=== PATIENT | male | born 1945 | race Caucasian/White ===

== ENCOUNTER 2018-08-26 05:45 | Day surgery (SDC) | payer MEDICARE ==
[2018-08-26] MEDS ORDERED: Clindamycin 900 MG IVPREMIX(* 900 MG/50 ML SDV IV ONE (06:36)
[2018-08-26] MEDS ORDERED: Buffered Lidocaine 1% SYRIN* 1 ML/SYRINGE INTRADERM ONE (06:36)
[2018-08-26] MEDS ORDERED: Bupivacaine 0.5%* 50 ML VIAL ONE (07:13)
[2018-08-26] MEDS ORDERED: Famotidine IV* 10 MG/ML 2 ML (20 mg) ONE (07:21)
[2018-08-26] MEDS ORDERED: Midazolam* 1 MG/ML 2 ML VIAL (2 MG) ONE (07:27)
[2018-08-26] MEDS ORDERED: fentaNYL* 50 MCG/ML 2 ML VIAL (100 MCG VIAL) ONE ×2 (07:27→07:51)
[2018-08-26] MEDS ORDERED: Lidocaine 2% PF * 5 ML VIAL ONE (07:35)
[2018-08-26] MEDS ORDERED: Cisatracurium* 2 MG/ML MDV 5 ML ONE (07:36)
[2018-08-26] MEDS ORDERED: Succinylcholine* 20 MG/ML 10 ML VIAL ONE (07:36)
[2018-08-26] MEDS ORDERED: Dexamethasone IV* 4 MG/ML 1 ML (4 MG) ONE (07:36)
[2018-08-26] MEDS ORDERED: Propofol* 10 MG/ML 20 ML BTL ONE (07:36)
[2018-08-26] MEDS ORDERED: Ondansetron INJ* 2 MG/ML VIAL ONE (07:36)
[2018-08-26] MEDS ORDERED: Levalbuterol 0.63MG/3ML NEB* UNIT OF USE INH PRN (08:03)
[2018-08-26] MEDS ORDERED: diPHENhydraMINE IV* 50 MG/ML 1 ml VIAL (BENADRYL) IV PRN (08:03)
[2018-08-26] MEDS ORDERED: HYDROcodone/ACETAMIN 5-325 MG* 1 TAB PO PRN (08:03)
[2018-08-26] MEDS ORDERED: oxyCODONE TAB* 5 MG TAB PO PRN (08:03)
[2018-08-26] MEDS ORDERED: DiMENhydriNATE IV* 50 MG/ML VIAL IV PUSH PRN (08:03)
[2018-08-26] MEDS ORDERED: Naloxone* 0.4 MG/ML 1 ML VIAL IV PRN (08:03)
[2018-08-26] MEDS ORDERED: PROCHLORPERAZINE INJ 5 MG/ML 2 ML VIAL IV PRN (08:03)
[2018-08-26] MEDS ORDERED: fentaNYL* 50 MCG/ML 2 ML VIAL (100 MCG VIAL) IV PRN (08:03)
[2018-08-26] MEDS ORDERED: Acetaminophen IV 1GM/100ML * 100 ML ONE (08:11)
[2018-08-26] MEDS ORDERED: Ketorolac INJ* 30 MG/ML 1 ML VIAL ONE (08:11)
[2018-08-26 09:33] VITALS: BP 143/66
--- NOTE | 2018-08-26 10:13 | OP ---
DATE OF OPERATION: 08/26/18 [facility] DATE OF : 49 SURGEON: Freddy Stauffer MD. PROFESSIONAL DEVELOPMENT INSTRUCTOR: Estephanie Burnett NP. SECOND AUDIO VISUAL ARTS DIRECTOR: LYLE Jenkins student. PRE-OP DIAGNOSIS: Cholecystitis. POST-OP DIAGNOSIS: Cholecystitis. OPERATIVE PROCEDURE: Laparoscopic cholecystectomy. INDICATION FOR PROCEDURE: History of biliary pancreatitis, cholecystitis. Risks included, but not limited to bleeding, infection, injury to intraabdominal contents including the bowel, the bowel gut, the liver, or other intraabdominal structures. He seemed to understand and agreed to the procedure and all questions were answered. DESCRIPTION OF PROCEDURE: The patient was taken to the operating room and placed supine. Preoperative antibiotics were given. After the successful induction of general endotracheal anesthesia, the abdomen was prepped and draped in sterile fashion. Time-out was performed indicating correct patient and correct procedure. A 5 mm trocar was placed in the subxiphoid position under direct visualization of the camera. Pneumoperitoneum was achieved at 15 mmHg. Camera was placed in the abdomen. The abdomen was scanned. There was no obvious injury from trocar placement. A 12 mm umbilical and two right-sided 5 mm trocars were placed, all under direct visualization of the camera. The fundus of the gallbladder was grasped and retracted up into the liver. The cystic duct was identified, isolated, clipped, and divided. The cystic artery was identified, isolated, clipped, and divided. The gallbladder was removed from the hepatic bed using the Bovie cautery hook that was placed into an endobag and removed to the umbilical port site. The right upper quadrant was inspected. EBL minimal. Hemostasis was intact. The clips were in place. Pneumo-peritoneum was released from the abdomen. The trocars were removed. The skin was closed with Monocryl and glue was applied. He tolerated the procedure well. He was extubated and taken to the recovery in stable condition. [id number]/[facility] #: [id number] [facility] NETWORKJose Roberto
== END 2018-08-26 09:47 | disposition home or self-care (01) ==
LOC: OR 05:45
PROVIDERS: ATTEND Surgery
DX: K80.10 Calculus of gallbladder with chronic cholecystitis without obstruction (principal); E11.9 Type 2 diabetes mellitus without complications; J44.9 Chronic obstructive pulmonary disease, unspecified; I73.9 Peripheral vascular disease, unspecified; I10 Essential (primary) hypertension; E78.5 Hyperlipidemia, unspecified; M10.9 Gout, unspecified; Z87.891 Personal history of nicotine dependence; K21.9 Gastro-esophageal reflux disease without esophagitis
CPT/HCPCS: 88304; J0330; J1100; J1885; J2250; J2405; J2704; J3010; J3490